=== PATIENT | female | born 1965 | race Caucasian/White ===

== ENCOUNTER 2022-08-11 09:54 | Emergency (ER) | payer MEDICAID, OTHER ==
[~2022-08-11] VITALS: Ht 170.2 cm; Wt 63.8 kg
[2022-08-11 11:27] VITALS: BP 135/80
[2022-08-11] MEDS ORDERED: ACETAMINOPHEN 500 MG TAB PO ONE (12:15)
[2022-08-11] MEDS ORDERED: ALBU108A5 IN (12:57)
[2022-08-11] MEDS ORDERED: RITO100T5 PO (13:41)
== END 2022-08-11 13:47 | disposition home or self-care (01) ==
LOC: ER 09:54
DX: U07.1 COVID-19 (principal); I10 Essential (primary) hypertension
CPT/HCPCS: 36415; 71045; 87426